=== PATIENT | female | born 1940 | race Caucasian/White ===

== ENCOUNTER 2018-11-27 10:23 | Outpatient (CLI) | payer MEDICARE, OTHER ==
--- NOTE | 2018-11-27 12:23 | MRI ---
MRI CERVICAL SPINE: HISTORY: Complaining of shoulder and arm numbness and pain. FINDINGS: Multiplanar, multisequence noncontrast-enhanced MRI images of cervical spine obtained. The spinal cord is unremarkable with no evidence of cord masses or lesions. C1-2: Unremarkable. C2-3: Unremarkable. C3-4: Unremarkable. C4-5: There is a mild broad-based disk bulge with no significant degree of central or neural foramin al narrowing. C5-6: There is a broad-based disk-osteophyte complex centrally compressing the thecal sac resulting in a mild degree of central stenosis. Mild bilateral lateral recess stenosis seen. There is mild to moderate bilateral C5-6 neural foraminal narrowing due to uncovertebral osteophyte hypertrophy. C6-7: There is a broad-based disk-osteophyte complex centrally resulting in mild but not significant degree of central stenosis. No significant cord compression seen. Mild right C6-7 and moderate lef t C6-7 neural foraminal narrowing is seen due to uncovertebral osteophyte hypertrophy. C7-T1: Unremarkable. IMPRESSION: Broad-based disk-osteophyte complexes with central and neural foraminal narrowing at C5-6 and C6-7 as described above. POS: [facility]
== END 2018-11-27 10:24 | disposition home or self-care (01) ==
LOC: TBSIIMAG 10:23
PROVIDERS: ATTEND Neurological Surgery
DX: M50.30 Other cervical disc degeneration, unspecified cervical region (principal); M48.02 Spinal stenosis, cervical region
CPT/HCPCS: 72141